=== PATIENT | male | born 1990 ===

== ENCOUNTER 2023-05-11 00:51 | Emergency (ER) | payer OTHER, SELFPAY ==
[2023-05-11] VITALS (11 sets, daily range): BP systolic 134–136; BP diastolic 81; PULSE 47–64; RESP 12–27; TEMP 36.5–36.6; O2SAT 94–100; BMI 23.1
--- NOTE | 2023-05-11 00:55 | DI.RAD.S_ITS ---
PROCEDURE: XR CHEST 1V INDICATIONS: RT-sided chest pain. TECHNIQUE: One view of the chest was acquired. COMPARISON: None. FINDINGS: Surgical changes and devices: None. Lungs and pleura: Lungs are clear. No pleural effusions or pneumothorax. Mediastinum: Mediastinal contours appear normal. Heart size is normal. Bones and chest wall: No suspicious bony lesions. Overlying soft tissues appear unremarkable. IMPRESSION: No acute cardiopulmonary pathology. No discrepancies. Dictated by: Isael Parsons M.D. on 05/11/2023 at 8:02 Approved by: Isael Parsons M.D. on 05/11/2023 at 8:02
[2023-05-11] MEDS: ASPIRIN 81 MG CHEW TAB 324 MG PO (01:09)
--- NOTE | 2023-05-11 01:23 | ED.CHESTPAIN ---
HPI - Chest Pain General Chief Complaint: Chest Pain Stated Complaint: chest pain x6 hours Time Seen by Provider: 05/11/23 01:23 Source: patient Mode of arrival: Ambulatory Limitations: no limitations History of Present Illness HPI narrative: 32-year-old male quit smoking 2-1/2 years ago. Patient states he started having right-sided chest pain that predominant more in the thoracic region start about 6 hours ago has been gradually worsening. States worse with deep inhalation. Patient states movement does not really seem to make any difference he has felt short of breath, he denies fevers or chills he is had some mild cough/mucus but states no hard coughs or coughing fits. Patient states does not radiate down to his abdomen patient denies any nausea currently but states he was vomiting. States pain started before he started throwing up. Patient states no dysuria urgency or frequency no issues with bowel movements. Denies any swelling extremities. No rash or skin changes. Has not had similar symptoms in the past. Denies any medical issues. No prior surgeries. No known drug allergies. Quit smoking 2-1/2 years ago, no alcohol, no illicit. States has cardiac history with grandparents but no parents or siblings. Patient states no blood clots. Patient did try ibuprofen and Tylenol at home without any improvement. Denies any long distance travel. Related Data Allergies Allergy/AdvReac Type Severity Reaction Status Date / Time No Known Drug Allergies Allergy Verified 05/11/23 01:03 Review of Systems Review of Systems ROS Unobtainable: All systems reviewed & are unremarkable except as noted in HPI and below Patient History Social History Smoking Status: Former smoker Smoking Status: Former smoker tobacco type: cigarettes Substance Use Type: does not use Exam Narrative Exam Narrative: GENERAL: Alert and oriented x three, thin male in moderate distress. HEENT: Head normocephalic, atraumatic, EOMI, pupils reactive, face symmetric, moist mucous membranes NECK: Supple, full range of motion CARDIOVASCULAR: Bradycardic but Regular rate and rhythm without murmurs, rubs or gallops. RESPIRATORY: Breath sounds slightly decreased in the right base, present in the right upper lung, no wheezes rales or rhonchi. No tachypnea. No accessory muscle use. No rash or skin changes. ABDOMEN: Soft, nontender. Normoactive bowel sounds all 4 quadrants. No guarding or rebound, rigidity, no mass : No CVA tenderness EXTREMITIES: Normal range of motion, no clubbing or edema. Neurovascularly intact NEUROLOGICAL: Cranial nerves II through XII grossly intact. Moving all extremities SKIN: Warm, dry, no petechiae, no rashes or lesions. Initial Vital Signs Initial Vital Signs: Vital Signs Pulse Rate 48 L 05/11/23 00:56 Respiratory Rate 19 05/11/23 00:56 Pulse Oximetry 100 05/11/23 00:56 Scores HEART Score Heart Score history: Slightly Suspicious Heart Score EKG: Non-Specific repolarization disturbance Heart Score Age: < 45 years old Heart Score risk factors: No known risk factors Heart Score troponin: < or = to normal limit Heart Score Total: 1 PERC Score Age greater than or equal to 50 years: No Heart rate greater than or equal to 100 bpm: No Room Air O2 Sat less than 95%: No Unilateral leg swelling: No Recent trauma or surgery: No Hemoptysis: No Prior PE or DVT: No Hormone Use: No Total PERC Score: 0 Course Orders Ordered: ED Orders 05/11/23 EKG-12 Lead Stat 05/11/23 00:55 XR chest 1V Stat EKG-12 Lead Stat 05/11/23 01:05 Complete Blood Count AUTO DIFF Stat Comprehensive Metabolic Panel Stat D Dimer Stat Lipase Stat Magnesium Stat Troponin & CK Cardiac Panel Stat 05/11/23 03:24 Trop I [Troponin I] Stat Discontinued Medications Aspirin (Aspirin 81 Mg Chew Tab) 324 mg PO NOW ONE Stop: 05/11/23 00:56 Last Admin: 05/11/23 01:09 Dose: 324 mg Documented By: RIKI Ketorolac Tromethamine (Ketorolac 30 Mg/Ml Vial) 15 mg IV NOW ONE Stop: 05/11/23 01:31 Last Admin: 05/11/23 01:44 Dose: 15 mg Documented By: RIKI Vital Signs Vital signs: Vital Signs - 8 hr 05/11/23 00:56 05/11/23 00:58 05/11/23 00:58 Temperature Pulse Rate 48 L 56 L Respiratory Rate 19 23 Blood Pressure 136/81 Pulse Oximetry 100 99 Oxygen Delivery Method 05/11/23 01:00 05/11/23 01:08 05/11/23 01:30 Temperature 97.8 F Pulse Rate 48 L 49 L 47 L Respiratory Rate 27 H 18 18 Blood Pressure 136/81 Pulse Oximetry 100 99 99 Oxygen Delivery Method Room Air 05/11/23 02:00 05/11/23 02:30 05/11/23 03:00 Temperature Pulse Rate 57 L 52 L 51 L Respiratory Rate 19 12 12 Blood Pressure Pulse Oximetry 96 95 94 Oxygen Delivery Method 05/11/23 03:30 05/11/23 04:00 05/11/23 04:25 Temperature 97.7 F Pulse Rate 64 51 L 50 L Respiratory Rate 19 12 14 Blood Pressure 134/81 Pulse Oximetry 94 94 98 Oxygen Delivery Method Room Air MDM - Chest Pain Lab Data 05/11/23 01:05 05/11/23 01:05 Labs: Lab Results 05/11/23 05/11/23 Range/Units 01:05 03:34 WBC 7.7 (4.5-11.0) X10^3/uL RBC 4.94 (4.5-5.9) X10^6/uL Hgb 14.3 (13.5-17.5) g/dL Hct 41.2 (41-53) % MCV 83.3 (80-100) fL MCH 29.0 (26-34) PG MCHC 34.8 (30-36) % RDW 14.0 (11.6-14.8) % Plt Count 300 (150-400) X10^3/uL Neut % (Auto) 55.7 (50-75) % Lymph % (Auto) 33.3 (25-40) % Stoddard % (Auto) 8.2 (3-14) % Eos % (Auto) 2.0 (2-4) % Baso % (Auto) 0.8 (0-2) % Neut # (Auto) 4300 (5498-5902) /uL Lymph # (Auto) 2600 (6720-8781) /uL Stoddard # (Auto) 600 (0-900) /uL Eos # (Auto) 200 (0-450) /uL Baso # (Auto) 100 (0-100) /uL D-Dimer < 215 (<500) ng/ml Sodium 138 (137-145) mmol/L Potassium 3.6 (3.4-5.1) mmol/L Chloride 100 (98-107) mmol/L Carbon Dioxide 26 (22-32) mmol/L BUN 17 (9-20) mg/dL Creatinine 0.99 (0.66-1.25) mg/dL Estimated GFR > 60 (>60) mL/min BUN/Creatinine Ratio 17.2 (6-22) Glucose 110 H (70-100) mg/dL Calcium 9.6 (8.4-10.2) mg/dL Magnesium 1.9 (1.6-2.3) mg/dL Total Bilirubin 0.5 (0.2-1.3) mg/dL AST 32 (17-59) IU/L ALT 45 (<50) IU/L Alkaline Phosphatase 87 (38-126) U/L Total Creatine Kinase 258 H (55-170) U/L Troponin I < 0.012 < 0.012 (0.01-0.034) ng/mL Total Protein 8.0 (6.3-8.2) g/dL Albumin 4.6 (3.5-5.0) g/dL Globulin 3.4 (1.7-4.1) g/dL Albumin/Globulin Ratio 1.4 (1.0-2.8) Lipase 96 (23-300) U/L Imaging Data Chest x-ray: Radiologist's Impression: No acute cardiopulmonary disease demonstrated. Mediastinal silhouette is unremarkable. Lungs are well aerated and clear. No mass, infiltrate or atelectasis his appear. No pleural effusion suspected. Osseous structures are unremarkable. ECG Data Attestation: I personally reviewed and interpreted this ECG as follows: Prior ECG tracings: not available for review Interpretation: Sinus bradycardia with sinus arrhythmia, rate of 48 TX 154 QRS of 104, incomplete right bundle-branch, no S1, no Q 3 T3. EKG2. Sinus bradycardia rate of 54 TX 162 QRS of [address] elevation or depression appreciated, patient does have incomplete right bundle-branch. No S1 Q 3 T3 noted. MDM Narrative Medical decision making narrative: 32-year-old with onset of right-sided chest pain which she describes as more thoracic starting about 6 hours ago gradually increasing patient is bradycardic but not hypotensive, not tachypneic, 99% on room air. EKG shows right bundle, no acute ST elevation depression appreciated. Patient had breath sounds bilaterally although slightly decreased in the base but present in the upper right lung. Patient had labs, chest x-ray which show no acute change, no pneumothorax on prelim read. Patient heart rate is more regularly in the 50s to 70s and patient is much more comfortable after toradol. notes they had covid at the beginning of the month but have since recovered. CBC is negative, dimer is negative, CMP shows no acute electrolyte abnormalities glucose of 110 normal renal function, no elevation of LFTs total CK is 258 troponin was negative. Patient's lipase is negative at 96. Patient had no reproducible abdominal pain or right upper quadrant pain on examination. Repeat troponin is negative. No dynamic changes on EKG/repeat EKg. Heart score of 1 with PERC 0. Patient received Toradol. Patient states pain has totally resolved and he was able to sleep. No nausea. Reviewed findings with patient/family. Labs, EKG findings and Work up. Discussed return precautions. Discharge Plan Departure Patient Disposition: Home Clinical Impression: Atypical chest pain Instructions: DI for Atypical Chest Pain Activity Restrictions/Additional Instructions: Please follow up for recheck. You may take tylenol up to 1000mg every 6 hours and/or ibuprofen 600mg every 6 hours as needed for pain. Please return for new or worsening chest pain, shortness of breath, lightheadedness or passing out, persistent vomiting, black or bloody stools, coughing up or vomiting blood or other new or concerning changes. Stand Alone Forms: Patient Portal/API
[2023-05-11 01:27] LABS: Add Manual Diff / Slide Review NO; Basophils Absolute Auto 100 /uL (0-100); Basophils Percent Auto 0.8 % (0-2); Eosinophils Absolute Auto 200 /uL (0-450); Hematocrit 41.2 % (41-53); Hemoglobin 14.3 g/dL (13.5-17.5); Lymphocytes Absolute Auto 2600 /uL (1100-4500); Lymphocytes Percent Auto 33.3 % (25-40); Mean Corpuscular HGB Conc 34.8 % (30-36); Mean Corpuscular Volume 83.3 fL (80-100); Monocytes Absolute Auto 600 /uL (0-900); Monocytes Percent Auto 8.2 % (3-14); Neutrophils Absolute Auto 4300 /uL (1500-7000); Neutrophils Percent Auto 55.7 % (50-75); Platelet Count 300 X10^3/uL (150-400); Red Blood Cell Count 4.94 X10^6/uL (4.5-5.9); White Blood Cell Count 7.7 X10^3/uL (4.5-11.0)
[2023-05-11 01:34] LABS: D Dimer < 215 ng/ml (<500)
[2023-05-11 01:37] LABS: Alanine Aminotransferase 45 IU/L (<50); Albumin 4.6 g/dL (3.5-5.0); Albumin Globulin Ratio 1.4 (1.0-2.8); Alkaline Phosphatase 87 U/L (38-126); Aspartate Aminotransferase 32 IU/L (17-59); BUN Creatinine Ratio 17.2 (6-22); Bilirubin Total 0.5 mg/dL (0.2-1.3); Blood Urea Nitrogen 17 mg/dL (9-20); Calcium 9.6 mg/dL (8.4-10.2); Carbon Dioxide 26 mmol/L (22-32); Chloride 100 mmol/L (98-107); Creatine Kinase 258 U/L (55-170); Estimated Glomerular Filt Rate > 60 mL/min (>60); Globulin 3.4 g/dL (1.7-4.1); Glucose 110 mg/dL (70-100); HEMOLYSIS < 15 (0-50); Lipase 96 U/L (23-300); Magnesium 1.9 mg/dL (1.6-2.3); Potassium 3.6 mmol/L (3.4-5.1); Sodium 138 mmol/L (137-145)
[2023-05-11] MEDS: KETOROLAC 30 MG/ML VIAL 15 MG IV (01:44)
[2023-05-11 01:48] LABS: Troponin I < 0.012 ng/mL (0.01-0.034)
[2023-05-11 04:04] LABS: Troponin I < 0.012 ng/mL (0.01-0.034)
== END 2023-05-11 04:27 | disposition home or self-care (01) ==
PROVIDERS: Emergency Provider Emergency Medicine
DX: R07.89 Other chest pain (principal)
CPT/HCPCS: 36415; 71045; 80053; 82550; 83690; 83735; 84484; 85025; 85379; 93005; 93010; 96374; 99284; J1885

== ENCOUNTER 2023-05-15 19:55 | Emergency (ER) | payer OTHER, SELFPAY ==
--- NOTE | 2023-05-15 20:06 | DI.RAD.S_ITS ---
PROCEDURE: XR CHEST 1V INDICATIONS: Chest pain TECHNIQUE: One view of the chest was acquired. COMPARISON: [facility], CR, XR CHEST 1V, 05/11/2023, 2:01. FINDINGS: Surgical changes and devices: None. Lungs and pleura: Lungs are clear. No pleural effusions or pneumothorax. Mediastinum: Mediastinal contours appear normal. Heart size is normal. Bones and chest wall: No suspicious bony lesions. Overlying soft tissues appear unremarkable. IMPRESSION: Portable chest within normal limits for age. Dictated by: Valentina Wanger M.D. on 05/15/2023 at 21:37 Approved by: Valentina Wagner M.D. on 05/15/2023 at 21:44
[2023-05-15 20:11] VITALS: BP 126/85; PULSE 60; PULSE 62; RESP 15; RESP 20; TEMP 36.9; O2SAT 96; O2SAT 98; BMI 23.2
[2023-05-15 20:13] VITALS: BP 119/78; PULSE 63; RESP 22; O2SAT 96
[2023-05-15 20:30] VITALS: BP 112/64; PULSE 66; RESP 18; O2SAT 96
[2023-05-15 20:39] LABS: Add Manual Diff / Slide Review NO; Basophils Absolute Auto 100 /uL (0-100); Basophils Percent Auto 0.8 % (0-2); Eosinophils Absolute Auto 200 /uL (0-450); Eosinophils Percent Auto 2.1 % (2-4); Hematocrit 40.8 % (41-53); Lymphocytes Absolute Auto 2300 /uL (1100-4500); Lymphocytes Percent Auto 30.8 % (25-40); Mean Corpuscular HGB Conc 34.4 % (30-36); Mean Corpuscular Hemoglobin 28.6 PG (26-34); Mean Corpuscular Volume 83.1 fL (80-100); Monocytes Absolute Auto 500 /uL (0-900); Monocytes Percent Auto 6.3 % (3-14); Neutrophils Absolute Auto 4400 /uL (1500-7000); Platelet Count 288 X10^3/uL (150-400); Red Blood Cell Count 4.91 X10^6/uL (4.5-5.9); Red Cell Distribution Width 13.9 % (11.6-14.8); White Blood Cell Count 7.4 X10^3/uL (4.5-11.0)
--- NOTE | 2023-05-15 20:42 | ED.CHESTPAIN ---
HPI - Chest Pain General Chief Complaint: Chest Pain Stated Complaint: chest pains Time Seen by Provider: 05/15/23 20:05 Source: patient Mode of arrival: Ambulatory Limitations: no limitations History of Present Illness HPI narrative: 32-year-old male who is here for evaluation of chest discomfort. He states it occurred earlier today and lasted approximately an hour and a half. It was fairly sudden onset. He was currently not having any symptoms. Not worse with palpation or movement or breathing. He did have 1 episode of vomiting but she did not necessarily think changed his discomfort at all. Has never had symptoms in this location in the. Related Data Allergies Allergy/AdvReac Type Severity Reaction Status Date / Time No Known Drug Allergies Allergy Verified 05/15/23 20:16 Review of Systems Cardiovascular Cardiovascular: Reports system reviewed and no additional complaints, except as documented Respiratory Respiratory: Reports system reviewed and no additional complaints, except as documented Gastrointestinal Gastrointestinal: Reports system reviewed and no additional complaints, except as documented Musculoskeletal Musculoskeletal: Reports system reviewed and no additional complaints, except as documented Integumentary/Breasts Skin/Breast: Reports system reviewed and no additional complaints, except as documented Hematologic/Lymphatic On Anticoagulants: No Patient History Social History Smoking Status: Former smoker Smoking Status: Former smoker tobacco type: cigarettes Substance Use Type: does not use Exam Initial Vital Signs Initial Vital Signs: Vital Signs Temperature 98.5 F 05/15/23 20:11 Pulse Rate 60 05/15/23 20:11 Respiratory Rate 20 05/15/23 20:11 Blood Pressure 126/85 05/15/23 20:11 Pulse Oximetry 98 05/15/23 20:11 Oxygen Delivery Method Room Air 05/15/23 20:11 Const General: cooperative, healthy appearing and No ill appearing HENND Head: normal to inspection and normocephalic Chest Chest: normal inspection of the chest and No tenderness Resp Effort & Inspection: normal respiratory effort Auscultation: clear to auscultation bilaterally Cardio Rate: regular rate Rhythm: regular rhythm GI Inspection: normal to inspection and non-distended Palpation: soft and No tender Skin General: no rashes or lesions noted Neuro General: patient alert, patient awake and moves all extremities Extrem General: normal to inspection Psych Appearance: grossly normal and well kempt Scores HEART Score Heart Score history: Slightly Suspicious Heart Score EKG: Normal Heart Score Age: < 45 years old Heart Score risk factors: No known risk factors Heart Score troponin: < or = to normal limit Heart Score Total: 0 PERC Score Age greater than or equal to 50 years: No Heart rate greater than or equal to 100 bpm: No Room Air O2 Sat less than 95%: No Unilateral leg swelling: No Recent trauma or surgery: No Hemoptysis: No Prior PE or DVT: No Hormone Use: No Total PERC Score: 0 Course Orders Ordered: ED Orders 05/15/23 20:06 XR chest 1V Stat EKG-12 Lead Stat 05/15/23 20:15 Complete Blood Count AUTO DIFF Stat Comprehensive Metabolic Panel Stat Lipase Stat Magnesium Stat PTT Partial Thromboplastin Emanuel Stat Prothrombin Time INR Stat Troponin & CK Cardiac Panel Stat Vital Signs Vital signs: Vital Signs - 8 hr 05/15/23 20:11 05/15/23 20:11 05/15/23 20:13 Temperature 98.5 F Pulse Rate 60 62 63 Respiratory Rate 20 15 22 Blood Pressure 126/85 Pulse Oximetry 98 96 96 Oxygen Delivery Method Room Air 05/15/23 20:13 05/15/23 20:30 05/15/23 20:30 Temperature Pulse Rate 66 Respiratory Rate 18 Blood Pressure 119/78 112/64 Pulse Oximetry 96 Oxygen Delivery Method 05/15/23 21:00 05/15/23 21:00 05/15/23 21:30 Temperature Pulse Rate 60 Respiratory Rate 21 Blood Pressure 99/52 L 103/59 L Pulse Oximetry 95 Oxygen Delivery Method 05/15/23 21:30 Temperature Pulse Rate 65 Respiratory Rate 20 Blood Pressure Pulse Oximetry 97 Oxygen Delivery Method MDM - Chest Pain Lab Data Attestation: I reviewed the patient's lab results. 05/15/23 20:15 05/15/23 20:15 Labs: Lab Results 05/15/23 Range/Units 20:15 WBC 7.4 (4.5-11.0) X10^3/uL RBC 4.91 (4.5-5.9) X10^6/uL Hgb 14.0 (13.5-17.5) g/dL Hct 40.8 L (41-53) % MCV 83.1 (80-100) fL MCH 28.6 (26-34) PG MCHC 34.4 (30-36) % RDW 13.9 (11.6-14.8) % Plt Count 288 (150-400) X10^3/uL Neut % (Auto) 60.0 (50-75) % Lymph % (Auto) 30.8 (25-40) % Morris % (Auto) 6.3 (3-14) % Eos % (Auto) 2.1 (2-4) % Baso % (Auto) 0.8 (0-2) % Neut # (Auto) 4400 (5547-7086) /uL Lymph # (Auto) 2300 (5872-8244) /uL Morris # (Auto) 500 (0-900) /uL Eos # (Auto) 200 (0-450) /uL Baso # (Auto) 100 (0-100) /uL PT 11.7 (10.1-12.7) SECONDS INR 1.0 (0.9-1.3) APTT 33 (26-36) SECONDS Sodium 138 (137-145) mmol/L Potassium 3.5 (3.4-5.1) mmol/L Chloride 103 (98-107) mmol/L Carbon Dioxide 27 (22-32) mmol/L BUN 13 (9-20) mg/dL Creatinine 0.97 (0.66-1.25) mg/dL Estimated GFR > 60 (>60) mL/min BUN/Creatinine Ratio 13.4 (6-22) Glucose 118 H (70-100) mg/dL Calcium 9.4 (8.4-10.2) mg/dL Magnesium 1.9 (1.6-2.3) mg/dL Total Bilirubin 0.8 (0.2-1.3) mg/dL AST 112 H (17-59) IU/L ALT 94 H (<50) IU/L Alkaline Phosphatase 81 (38-126) U/L Total Creatine Kinase 113 (55-170) U/L Troponin I < 0.012 (0.01-0.034) ng/mL Total Protein 8.1 (6.3-8.2) g/dL Albumin 4.6 (3.5-5.0) g/dL Globulin 3.5 (1.7-4.1) g/dL Albumin/Globulin Ratio 1.3 (1.0-2.8) Lipase 132 (23-300) U/L Imaging Data Chest x-ray: Radiologist's Impression: PROCEDURE: XR CHEST 1V INDICATIONS: Chest pain TECHNIQUE: One view of the chest was acquired. COMPARISON: [facility], CR, XR CHEST 1V, 05/11/2023, 2:01. FINDINGS: Surgical changes and devices: None. Lungs and pleura: Lungs are clear. No pleural effusions or pneumothorax. Mediastinum: Mediastinal contours appear normal. Heart size is normal. Bones and chest wall: No suspicious bony lesions. Overlying soft tissues appear unremarkable. IMPRESSION: Portable chest within normal limits for age ECG Data Attestation: I personally reviewed and interpreted this ECG as follows: Interpretation: Sinus rhythm Ventricular rate is 63 Normal axis Normal QRS Normal QTC No ST T wave changes MDM Narrative Medical decision making narrative: Low risk heart score. PERC negative. Not hypoxic. Chest x-ray is unremarkable. EKG is unremarkable. Labs unremarkable. Unsure the exact etiology when I have low suspicion for ACS. Low suspicion for PE. Low suspicion pneumonia. Did discuss the lack of a definitive diagnosis however has a very high chance this is GI related potentially even an esophageal spasm. Patient expressed understanding of this. Will discharge home with instructions for return precautions and follow-up. He expressed understanding and agreement. Discharge Plan Departure Patient Disposition: Home Clinical Impression: Atypical chest pain Instructions: DI for Atypical Chest Pain Activity Restrictions/Additional Instructions: I do recommend that you continue any medications as directed. Contact your primary provider for follow-up. Return to the emergency department for new or worsening symptoms. Referrals: ProviderKaia [Primary Care Provider] - Stand Alone Forms: Patient Portal/API
[2023-05-15 20:45] LABS: Prothrombin Time 11.7 SECONDS (10.1-12.7)
[2023-05-15 20:47] LABS: PTT Partial Thromboplastin Tim 33 SECONDS (26-36)
[2023-05-15 20:51] LABS: Alanine Aminotransferase 94 IU/L (<50); Albumin 4.6 g/dL (3.5-5.0); Albumin Globulin Ratio 1.3 (1.0-2.8); Alkaline Phosphatase 81 U/L (38-126); Aspartate Aminotransferase 112 IU/L (17-59); BUN Creatinine Ratio 13.4 (6-22); Bilirubin Total 0.8 mg/dL (0.2-1.3); Blood Urea Nitrogen 13 mg/dL (9-20); Calcium 9.4 mg/dL (8.4-10.2); Carbon Dioxide 27 mmol/L (22-32); Chloride 103 mmol/L (98-107); Creatine Kinase 113 U/L (55-170); Estimated Glomerular Filt Rate > 60 mL/min (>60); Globulin 3.5 g/dL (1.7-4.1); Glucose 118 mg/dL (70-100); HEMOLYSIS < 15 (0-50); Lipase 132 U/L (23-300); Magnesium 1.9 mg/dL (1.6-2.3); Potassium 3.5 mmol/L (3.4-5.1); Sodium 138 mmol/L (137-145); Total Protein 8.1 g/dL (6.3-8.2)
[2023-05-15 21:00] VITALS: BP 99/52; PULSE 60; RESP 21; O2SAT 95
[2023-05-15 21:01] LABS: Troponin I < 0.012 ng/mL (0.01-0.034)
[2023-05-15 21:30] VITALS: BP 103/59; PULSE 65; RESP 20; O2SAT 97
== END 2023-05-15 21:46 | disposition home or self-care (01) ==
PROVIDERS: Emergency Provider Emergency Medicine
DX: R07.89 Other chest pain (principal)
CPT/HCPCS: 36415; 71045; 80053; 82550; 83690; 83735; 84484; 85025; 85610; 85730; 93005; 93010; 99283; 99284